=== PATIENT | male | born 1945 | race Caucasian/White ===

== ENCOUNTER 2023-10-23 14:26 | Emergency (ER) | payer OTHER, SELFPAY ==
[2023-10-23 14:30] VITALS: BP 174/74
[2023-10-23 14:33] VITALS: BP 174/74; BMI 21.9
[2023-10-23 14:56] LABS: Glucose - Point of Care 96 mg/dl (70-99)
[2023-10-23 14:56] LABS: % Basophils 0.5 % (0-2); % Eosinophils 1.9 % (0-6); % Immature Granulocytes 0.4 % (0-0.5); % Lymphocytes 16.1 % (20.5-51.1); % Monocytes 6.2 % (1.7-9.3); % Neutrophils 74.9 % (42.2-75.2); Absolute Eosinophils 0.2 10^3/uL (0-0.7); Absolute Lymphocytes 1.3 10^3/uL (1.2-3.4); Absolute Monocytes 0.5 10^3/uL (0.1-0.6); Absolute Neutrophils 6.1 10^3/uL (1.4-6.5); Hemoglobin 12.9 g/dL (13.0-18.0); Mean Corp Hgb Conc. 35.8 g/dL (33.0-37.0); Mean Corpuscular Hgb 32.7 pg (27.0-31.0); Mean Corpuscular Volume 91.1 fL (80.0-94.0); Mean Platelet Volume 9.5 fL (7.4-10.4); Nucleated Red Blood Cells % 0 % (-); Platelet Count 200 10^3/uL (130-400); Red Blood Cell Count 3.95 10^6/uL (4.70-6.10); Red Cell Dist. Width 13.1 % (11.5-14.5); White Blood Cell Count 8.1 10^3/uL (4.8-10.8)
[2023-10-23 15:00] VITALS: BP 138/74
[2023-10-23 15:06] LABS: INR 1.05; PT 13.5 Sec (11.4-14.6)
--- NOTE | 2023-10-23 15:08 | ED.GENMED ---
History of Present Illness
General
Chief Complaint: Visual Problem
Time Seen by Provider: 10/23/23 15:08
Travel History
Have you had any contact with someone who has COVID-19?: No
Do you have any symptoms of coronavirus? Fever > 100 degrees, chills, cough, shortness of breath, sore throat, loss of taste or smell, muscle aches, or headache?: No
History of Present Illness
History of Present Illness:
HPI: The patient is currently somewhat of a limited historian, therefore I spoke to the stepdaughter, Shanti, over the phone, . He apparently was complaining of mouth and head pain over the past 4 days (of note, the patient did not even
mention this when I was initially evaluating the patient). Shanti says he has a history of Asperger's. He apparently is been having weakness. He tells me that the vision change in the right eyes been ongoing for the past 3 years. However daughter
thinks that the vision change may have worsened today to the point that he could not drive and became so weak. Currently his speech is now significantly improved compared to earlier. Apparently it was a band member that noted a speech exchange consultant
the phone and ultimately called EMS.
EXAM:
GENERAL: Well appearing in no distress
HEENT: Moist oral mucosa
CARDIOVASCULAR: No murmurs, normal heart rate, regular rhythm, No chest wall tenderness
PULMONARY: No respiratory distress, breath sounds are clear and equal
ABDOMEN: Soft with no peritoneal signs, no tenderness
NEUROLOGIC: Good strength in all extremities, no apparent coordination deficits, he occasionally has some tangential thoughts and is somewhat of a limited historian
PSYCHIATRIC: Appropriate mental status, fair insight and judgement
EXTREMITIES: Nontender, no edema, moves all extremities equally
SKIN: No rash, no lesions
TIME OF INITIAL ENCOUNTER: 3:20 PM
NUMBER AND COMPLEXITY OF PROBLEMS ADDRESSED AT THE ENCOUNTER
� Chronic conditions affecting care: Hyperlipidemia, depression, cataracts
� Acute Exacerbation and/or Progression of Chronic Illness: This is an acute problem however some of this may be chronic
� Differential Diagnosis includes: Electrolyte abnormality, anemia, intracranial abnormality such as stroke,
AMOUNT AND/OR COMPLEXITY OF DATA TO BE REVIEWED AND ANALYZED
� I performed an independent evaluation of and my interpretation is:
EKG: Sinus 55, left axis deviation, no acute ST abnormality
CT: CAT scan of the brain shows no acute abnormality
X-rays:
Laboratory Studies: CBC, chemistries unremarkable, glucose normal,
Other:
� Review of other/old records: No old records available for review as the patient typically goes to [facility] (patient refused to go to [facility]).
� Clinical information was obtained by an independent historian: I spoke to the daughter over the phone
� Prescriptions/Medications Considered but not given:
� Further testing considered but not performed:
RISK OF COMPLICATIONS AND/OR MORBIDITY OR MORTALITY OF PATIENT MANAGEMENT
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
� Discussion with other providers:
� Escalation of care including admission/observation vs risk of discharge considered: The patient was given some IV fluids. Blood work is unremarkable, alcohol level undetected, CT imaging of the brain is unremarkable. His
visual acuity on my examination was 20/20. I reassessed patient at 4:50 PM, he says he was able to take a little bit of a nap. He seems to have appropriate mental status for the most part on reassessment. The stepdaughter did not seem concerned
about any changes in mental status currently. I reviewed the workup with her over the phone and she will be coming here to pick him up.
Phy Exam
Physical Exam
Physical Exam:
See HPI
Course
Orders/Labs/Results
Orders:
Orders
10/23/23 14:46
Electrocardiogram (*1) Urgent
Reason for Study: Chest Pain
Cardiac Monitoring- Treatment ONCE
EKG- Treatment ONCE
IV Insert/Care/Rem.- Treatment PRN
10/23/23 14:48
Alcohol Urgent
Complete Blood Count/With Diff Urgent
Comprehensive Metabolic Panel Urgent
Prothrombin Time Urgent
10/23/23 14:50
Troponin I Urgent
10/23/23 15:09
Add On- LAB Urgent
Tests Added?: alcohol
10/23/23 15:21
CT Head W/o Iv Contrast Urgent
Comment:
Reason For Exam: alt ms speech change
10/23/23 15:55
0.9% Sodium Chloride 500 ml [Nss] 500 ml IV BOLUS
Abnormal Lab Results
10/23/23
14:48
RBC 3.95 L 10^6/uL
(4.70-6.10)
Hgb 12.9 L g/dL
(13.0-18.0)
Hct 36.0 L %
(39.0-52.0)
MCH 32.7 H pg
(27.0-31.0)
Lymphocytes % 16.1 L %
(20.5-51.1)
10/23/23 14:48
10/23/23 14:48
Vital Signs
Initial and Last Documented VS:
Initial Vital Signs
BP
174/74
10/23/23 14:30
Last Documented Vital Signs
Temp Pulse Resp BP Pulse Ox
97.8 F 58 16 144/72 100
10/23/23 14:33 10/23/23 16:30 10/23/23 16:30 10/23/23 16:25 10/23/23 16:30
*Critical Care Note
Total Time (30-74mins, 75-104mins- exclusive of procedures): Not Applicable
ED Attending Note
-
Portions of this chart may have been created with voice recognition software.� Occasional wrong word or��sound alike� substitutions may have occurred due to the inherent limitations of voice recognition software.
Discharge Plan
Departure
Patient Disposition: Home (Routine Discharge)
Date of Disposition: 10/23/23
Time of Disposition: 16:54
Patient with high blood pressure during this ER visit?: Yes
Discharge Problem:
Visual changes
Referrals:
Michael Restrepo CRNP [Family Provider] -
Activity Restrictions/Additional Instructions:
The CAT scan of the brain shows no acute abnormality, basic labs are unremarkable. I spoke to Shanti. Return here if worse.
Interventions
Interventions:
*Risk Screen - Suicide Last Done: 10/23/23 14:33
*General Assessment Last Done: 10/23/23 14:33
*Neglect/Abuse Screening Last Done: 10/23/23 14:33
ED- Fall Risk Assessment Last Done: 10/23/23 14:33
*ED COVID-19 Vaccine History Last Done: 10/23/23 14:33
ED- Neurological Assessment Last Done: 10/23/23 15:02
ED-Musculoskeletal Assessment Last Done: 10/23/23 15:02
ED-EENT Assessment Last Done: 10/23/23 15:45
ED Swallowing Screen Last Done: 10/23/23 15:45
Discharge Date and Time
Print Language: BELARUSIAN
[2023-10-23 15:09] LABS: ALT (SGPT) 17 U/L (0-50); AST (SGOT) 30 U/L (17-59); Albumin 4.3 g/dl (3.5-5.0); Alkaline Phosphatase 88 U/L (38-126); Blood Urea Nitrogen 14 mg/dl (9-20); Calcium 9.7 mg/dl (8.4-10.2); Carbon Dioxide 26 mmol/L (22-30); Chloride 107 mmol/L (98-107); Estimated Creatinine Clearance 51 ml/min; Glucose 82 mg/dl (70-99); Potassium 4.1 mmol/L (3.5-5.1); Sodium 140 mmol/L (135-145); Total Bilirubin 0.8 mg/dl (0.2-1.3); Total Protein 7.2 g/dl (6.3-8.2); eGFR > 60.00
--- NOTE | 2023-10-23 15:17 | EDRN ---
Dr. Hoff in room w/ pt. Pt is very off, not able to follow his conversation. Dr. Pinedo is speaking w daughter on the phone via speaker at this time.
[2023-10-23 15:21] LABS: Troponin I < 0.012 ng/ml
[2023-10-23 15:46] LABS: Alcohol None Detected
--- NOTE | 2023-10-23 15:47 | EDRN ---
Pt was unable to perform visual acuity due to blurring of vision w/ both eyes. Pt uses glasses only for reading per pt.
[2023-10-23 16:00] VITALS: BP 132/84
[2023-10-23 16:25] VITALS: BP 144/72
[2023-10-23] MEDS: NSS 500 IV (16:29)
[2023-10-23 17:00] VITALS: BP 135/72
== END 2023-10-23 17:20 | disposition home or self-care (01) ==
LOC: EMR 14:26
PROVIDERS: Emergency Medicine; EMERGENCY PHYSICIAN Emergency Medicine; FAMILY PHYSICIAN Nurse Practitioner Adult Health
DX: H53.8 Other visual disturbances (principal); F84.5 Asperger's syndrome; I10 Essential (primary) hypertension
CPT/HCPCS: 99285; 96360; 70450; 80053; 82077; 82962; 84484; 85025; 85610; 93005